=== PATIENT | male | born 2000 | race Caucasian/White ===

== ENCOUNTER → 2022-08-24 11:13 | Outpatient (BNVA) | payer MEDICAID, SELFPAY | PROVIDERS: PCP Student in an Organized Health Care Education/Training Program; Referring Provider Student in an Organized Health Care Education/Training Program; Visit Provider Surgery | DX: L05.91 Pilonidal cyst without abscess (principal) | CPT/HCPCS: 99202 ==

== ENCOUNTER 2022-09-22 11:04 | Day surgery (SDC) | payer MEDICAID, SELFPAY ==
[2022-09-16 09:57] VITALS: BMI 22.9
[2022-09-22] VITALS (8 sets, daily range): BP systolic 95–139; BP diastolic 37–65; PULSE 58–85; RESP 12–18; TEMP 36.1–36.6; O2SAT 94–98
--- NOTE | 2022-09-22 07:40 | MHC.SHP ---
Pre-Procedural Eval Section A Date of Service: 09/22/22 The patient is an INPATIENT: No Changes since office visit: No Cold of Flu in the past 2 weeks, No New Medical Problems, No Changes in Medication and No Patient answered all questions The History & Physical has been completed within 30 days and I have reviewed it.: Yes Section B Chief Complaint: Pilonidal cyst without abscess Allergies: Allergies Allergy/AdvReac Type Severity Reaction Status Date / Time No Known Allergies Allergy Verified 08/24/22 11:22 Plan I have reviewed the history and physical and performed a pertinent physical examination on my patient. No changes have occurred unless specified. Time Spent With Patient Time: Total time managing care of this patient today ____ minutes.
--- NOTE | 2022-09-22 10:57 | HO.ANESPROP2 ---
HPI - Anesthesia Eval Consult details Narrative: Excision of pylonidal cyst PMFSH Active Problems Active Problems: All Active Problems (Updated 09/16/22 @ 09:56 by Camelia Marsh RN) Pilonidal cyst of cleft (Acute) Past Medical History Medical History (Updated 09/16/22 @ 09:56 by Camelia Marsh RN) No pertinent past medical history Family History Family history of problems with anesthesia: No Surgical History Surgical History (Updated 09/16/22 @ 09:56 by Camelia Marsh RN) No pertinent past surgical history History of Problems with Anesthesia: No Social History Social History (Updated 08/24/22 @ 11:23 by LONNY Jauregui) Alcohol intake: current Alcohol intake frequency: holidays/special occasions only Patient Tobacco Use Status: Never used Tobacco Meds Allergies Allergy/AdvReac Type Severity Reaction Status Date / Time No Known Allergies Allergy Verified 08/24/22 11:22 Home Medications Medication Instructions Recorded Confirmed Last Taken Type No Known Home Meds 08/24/22 09/16/22 Unknown History Exam Exam Date and Time: September 22, 2022 1057 Height,Weight and Vital Signs: Height 5 ft 7 in Weight 66.224 kg Airway Mallampati Class: II TM Dist: >3cm Neck ROM: Full Heart: rrr Lungs: cta Assessment and Plan Assessment Anesthesia Assessment: Anesthesia Plan Discussed and Chart Reviewed Final Anesthetic Review Family History of Problems with Anesthesia: No History of Problems with Anesthesia: No NPO: Yes ASA Class: II Final Preanesthetic Review: No Changes in Pt Med Stat, Meds/Allgs Chart Reviewed, Consent Obtained/Reviewed and Anes Risks/Benef Reviewed Patient Risk: Low Procedure Risk: Low Anesthetic Plan Anesthetic Plan: GA and Agree w/ Assess. and Plan Disposition: Standard PACU
[2022-09-22] MEDS: Lactated Ringers 1,000 ML 100 ML IVCONT (11:27)
--- NOTE | 2022-09-22 12:48 | P.OP_ITS ---
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 Obin[place] cleft area and perineum were prepped and draped in usual sterile fashion. Using a longitudinal bi- elliptical incision encompassing all the pilonidal disease tissue including a long track which extended several cm proximally, this carried down through skin, subcutaneous tissue, and undermined using Bovie. Specimen sent to pathology. Wound was irrigated, secured hemostasis, and closed in the following manner; deep subcutaneous tissue to wound base to contralateral subcutaneous tissue interrupted 0 Vicryl sutures were initially placed. Interrupted inverted dermal 3-0 Vicryl sutures followed by vertical mattress 2-0 Prolene sutures were then placed. Sponge, needle, and instrument counts reported correct. Patient tolerated the procedure well and emerged from anesthesia in stable condition. EBL minimal
== END 2022-09-22 14:45 | disposition home or self-care (01) ==
PROVIDERS: PCP Student in an Organized Health Care Education/Training Program; Visit Provider Surgery
PROC: (CPT 11771; principal; 2022-09-22 13:10)
DX: L05.91 Pilonidal cyst without abscess (principal)
CPT/HCPCS: 11771; 88304; J0690; J1100; J2250; J2405; J2795; J3010

== ENCOUNTER → 2022-09-22 11:04 | Outpatient (BNV) | payer MEDICAID, SELFPAY | PROVIDERS: PCP Student in an Organized Health Care Education/Training Program; Visit Provider Surgery | DX: L05.92 Pilonidal sinus without abscess (principal) | CPT/HCPCS: 11770 ==

== ENCOUNTER 2022-09-30 10:26 | Outpatient (AMB) | payer MEDICAID, SELFPAY ==
--- NOTE | 2022-09-30 10:36 | MHC.OFFVIS ---
Intake Vital Signs 09/30/22 10:40 Weight 142 lb BP 132/69 Blood Pressure Location Rt brachial Position Sitting Pulse 56 Intake Visit Reasons: S/P excision pilonidal cyst of cleft Intake Note: Patient here s/o exc for pilnidal cyst on brigitte cleft. Patient reports incisions healing well. C/o pain when switching sitting, standing, laying positions. Requesting stronger pain meds. 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 He has minimal incisional discomfort. He is doing otherwise well. Pathology was reviewed. [facility] Medical History No pertinent past medical history Surgical History No pertinent past surgical history Social History Alcohol intake: current Alcohol intake frequency: holidays/special occasions only Patient Tobacco Use Status: Never used Tobacco Physical Exam Vital Signs: Last Vital Signs Pulse 56 09/30/22 10:40 BP 132/69 09/30/22 10:40 Back/Spine/Pelvis Other: Wound is clean dry and intact with sutures in place. Healing uneventfully. Assessment & Plan Assessment & Plan (1) Pilonidal cyst of cleft: Code(s): L05.91 - Pilonidal cyst without abscess Plan Patient has been given local instructions, and will see me in 1 weeks time for suture removal. Will also call in analgesics in the form Motrin 800 mg. Medications: New ibuprofen 800 mg PO Q8H PRN 30 tabs 0RF pain Coding Level of Care Code Global (14746) Diagnoses Pilonidal cyst of brigitte cleft L05.91
[2022-09-30 10:40] VITALS: BP 132/69; PULSE 56
== END 2022-09-30 10:51 | disposition home or self-care (01) ==
PROVIDERS: PCP Student in an Organized Health Care Education/Training Program; Visit Provider Surgery
DX: L05.91 Pilonidal cyst without abscess (principal)
CPT/HCPCS: 99024

== ENCOUNTER → 2022-09-30 10:26 | Outpatient (BNVA) | payer MEDICAID, SELFPAY | PROVIDERS: PCP Student in an Organized Health Care Education/Training Program; Visit Provider Surgery ==

== ENCOUNTER 2022-10-05 12:46 | Outpatient (REF) | payer MEDICAID, SELFPAY ==
[2022-10-05 16:07] LABS: MANUAL DIFF FLAG NO
[2022-10-05 16:48] LABS: Basophils Percent Auto 0.4 % (0-2); Eosinophils Percent Auto 0.5 % (0-4); Hematocrit 50.6 % (42.0-52.0); Hemoglobin 16.4 g/dl (14.0-18.0); Imm Gran Abs Auto 0.02 X10*3/uL (0.00-0.03); Imm Gran Pct Auto 0.3 % (0.0-0.4); Lymphocytes Absolute Auto 2.2 X10*3/uL (1.2-4.9); Lymphocytes Percent Auto 29.2 % (20-40); Mean Corpuscular HGB Conc 32.4 g/dl (31.0-36.0); Mean Corpuscular Hemoglobin 29.2 pg (27.0-33.0); Monocytes Absolute Auto 0.4 X10*3/uL (0.1-1.2); Neutrophils Percent Auto 64.6 % (45-73); Platelet Count 215 X10*3/uL (160-400); Red Blood Count 5.62 X10*6/uL (4.60-5.80); Red Cell Distribution Width 12.9 % (11.0-16.0); White Blood Count 7.7 X10*3/uL (4.8-10.8)
[2022-10-05 16:57] LABS: Estimated Average Glucose 94 mg/dL; Hemoglobin A1c % 4.9 %
[2022-10-05 17:30] LABS: Alanine Aminotransferase 34 U/L (0-40); Albumin Level 4.8 g/dL (3.5-5.0); Alkaline Phosphatase 61 U/L (39-117); Anion Gap 16 (12-20); Aspartate Amino Transferase 38 U/L (5-37); Bilirubin Total 0.4 mg/dL (0.0-1.0); Blood Urea Nitrogen 9 mg/dL (9-16); Calcium 10.3 mg/dL (8.4-10.2); Carbon Dioxide 24 mmol/L (22-29); Chloride 105 mmol/L (96-108); Cholesterol 184 mg/dL; Estimated Glomerular Filt Rate > 60; Glucose Random 81 mg/dL (60-115); HDL Cholesterol 66 mg/dL; LDL Cholesterol Calculated 106 mg/dl; Sodium 141 mmol/L (135-145); TSH reflex Free T4 0.83 uIU/mL (0.32-4.0); Total Protein 7.9 g/dL (6.5-8.0); Triglycerides 63 mg/dL
[2022-10-06 03:39] LABS: CT PCR NOT DETECTED (Not Detect.); NG PCR NOT DETECTED (Not Detect.)
[2022-10-06 07:44] LABS: Syphilis Screen Nonreactive (Nonreactive)
[2022-10-06 08:17] LABS: HBS Num1 4.12 mIU/mL (0-7.99); HBc Num1 0.12 S/CO (0.00-0.79); HBsAGNum1 0.45 S/CO (0.00-0.99); HIV AB/AG Nonreactive (Nonreactive); HIV Num 1 0.05 S/CO (0.00-0.99); Hepatitis B Core Antibody Nonreactive (Nonreactive); Hepatitis B Surface Antigen Negative (Negative); ~Hepatitis B Surface Antibody NONREACTIVE (Nonreactive)
[2022-10-06 08:36] LABS: ~Hepatitis C Antibody Nonreactive (Nonreactive)
== END 2022-10-05 12:47 | disposition home or self-care (01) ==
LOC: HO.HHCL 12:46
PROVIDERS: Visit Provider Student in an Organized Health Care Education/Training Program
DX: Z00.00 Encounter for general adult medical examination without abnormal findings (principal); Z11.4 Encounter for screening for human immunodeficiency virus [HIV]; Z11.3 Encounter for screening for infections with a predominantly sexual mode of transmission
CPT/HCPCS: 0353U; 80053; 80061; 83036; 84443; 85025; 86704; 86706; 86780; 86803; 87340; 87389

== ENCOUNTER 2022-10-07 10:42 | Outpatient (AMB) | payer MEDICAID, SELFPAY ==
[2022-10-07 10:50] VITALS: BP 133/84; PULSE 77
--- NOTE | 2022-10-07 10:50 | A.OFFVIS_ITS ---
Intake Vital Signs 10/07/22 10:50 Weight 144 lb BP 133/84 Blood Pressure Location Rt brachial Position Sitting Pulse 77 Intake Visit Reasons: 1 wk follow up pilonidal cyst cleft Intake Note: Patient here 2wk s/p exc pilonidal cyst on brigitte cleft. Patient reports incision healing well. Denies pain or oozing. 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 He is doing quite well. He is increasing his activity level. He has minimal incisional discomfort. He presents for suture removal. [facility] Medical History No pertinent past medical history Surgical History No pertinent past surgical history Social History Alcohol intake: current Alcohol intake frequency: holidays/special occasions only Patient Tobacco Use Status: Never used Tobacco Physical Exam Vital Signs: Last Vital Signs Pulse 77 10/07/22 10:50 BP 133/84 10/07/22 10:50 Back/Spine/Pelvis Other: Wound is healing quite well. Patient underwent uneventful suture removal. Dressing was applied. Assessment & Plan Assessment & Plan (1) Pilonidal cyst of brigitte cleft: Code(s): L05.91 - Pilonidal cyst without abscess Plan Patient will be given a note for another 2 weeks off from work and then when he does recommence, 2 weeks of light duty. Patient will otherwise follow up p.r.n.. He has been given local instructions. Coding Level of Care Code Global (95861) Diagnoses Pilonidal cyst of brigitte cleft L05.91
== END 2022-10-07 10:55 | disposition home or self-care (01) ==
PROVIDERS: PCP Student in an Organized Health Care Education/Training Program; Visit Provider Surgery
DX: L05.91 Pilonidal cyst without abscess (principal)
CPT/HCPCS: 99024

== ENCOUNTER → 2022-10-07 10:42 | Outpatient (BNVA) | payer MEDICAID, SELFPAY | PROVIDERS: PCP Student in an Organized Health Care Education/Training Program; Visit Provider Surgery ==

== ENCOUNTER 2022-10-18 09:20 | Outpatient (REF) | payer OTHER, SELFPAY ==
[2022-10-18 13:22] LABS: Alanine Aminotransferase 35 U/L (0-40); Albumin Level 4.7 g/dL (3.5-5.0); Alkaline Phosphatase 59 U/L (39-117); Anion Gap 11 (12-20); Aspartate Amino Transferase 32 U/L (5-37); Bilirubin Total 0.5 mg/dL (0.0-1.0); Blood Urea Nitrogen 9 mg/dL (9-16); Carbon Dioxide 31 mmol/L (22-29); Chloride 105 mmol/L (96-108); Estimated Glomerular Filt Rate > 60; Glucose Random 83 mg/dL (60-115); Potassium 4.1 mmol/L (3.3-5.1); Sodium 143 mmol/L (135-145); Total Protein 7.6 g/dL (6.5-8.0)
== END 2022-10-18 09:21 | disposition home or self-care (01) ==
LOC: HO.HHCL 09:20
PROVIDERS: Visit Provider Student in an Organized Health Care Education/Training Program
DX: E83.52 Hypercalcemia (principal)
CPT/HCPCS: 36415; 80053